=== PATIENT | female | born 1995 | race Hispanic/Latino ===

== ENCOUNTER 2021-08-07 21:10 | Emergency (ER) | payer SELFPAY ==
[~2021-08-07] VITALS: Ht 165.1 cm; Wt 88.0 kg
[2021-08-07 22:20] LABS: URINE BILIRUBIN - DIPSTICK NEGATIVE (NEGATIVE); URINE BLOOD DIPSTICK SMALL (NEGATIVE); URINE COLOR YELLOW; URINE GLUCOSE - DIPSTICK NEGATIVE (NEGATIVE); URINE KETONE NEGATIVE (NEGATIVE); URINE PROTEIN - DIPSTICK NEGATIVE (NEG-TRACE); URINE SPECIFIC GRAVITY 1.025; URINE UROBILINOGEN - DIPSTICK 0.2 E.U./dL (0.2)
[2021-08-07 22:22] LABS: HEMATOCRIT 38.3 % (37.0-47.0); HEMOGLOBIN 12.5 g/dl (12.0-16.0); IMMATURE GRANULOCYTES 0.4 % (0.0-5.0); MEAN CELL VOLUME 86.5 fL CALC (80.0-100.0); MEAN CORPUSCULAR HGB 28.2 pG CALC (26.0-32.0); MEAN CORPUSCULAR HGB CONC 32.6 g/dL CAL (32.0-36.0); NEUT# 1.67 thou/uL (2.00-7.15); RED BLOOD COUNT 4.43 mill/uL (4.20-5.60); RED CELL DISTRI WIDTH 13.6 % (11.5-15.5)
[2021-08-07 22:23] LABS: URINE LEUK ESTERASE MODERATE (NEGATIVE); URINE NITRITE - DIPSTICK NEGATIVE (Negative)
[2021-08-07 22:24] LABS: URINE SQUAMOUS EPITHELIAL CELL FEW EPI/hpf (0-FEW)
[2021-08-07 22:36] LABS: ALBUMIN 4.1 g/dL (3.2-5.0); ALKALINE PHOSPHATASE 75 u/l (38-126); AMYLASE 69 u/l (30-110); ANION GAP 13 (6-22 (CALC)); BILIRUBIN, TOTAL 0.2 mg/dL (0.0-1.4); BUN 11 mg/dL (7-17); BUN/CREATININE RATIO 18 (12-20 (CALC)); CARBON DIOXIDE 23 mmol/l (22-30); CHLORIDE 106 mmol/l (95-108); CREATININE 0.6 mg/dL (0.5-1.0); GFR > 60 ML/MIN (>=60 (CALC)); GFR FOR AFR.AMER. > 60 ML/MIN (>=60 (CALC)); LIPASE 167 u/l (23-300); POTASSIUM 3.9 mmol/l (3.5-5.1); SGOT/AST 135 u/l (14-36); SODIUM 138 mmol/l (137-146); TOTAL PROTEIN 7.3 g/dL (6.3-8.2)
[2021-08-08] MEDS ORDERED: KEFLEX500 MG PO ×2 (00:17→00:24)
[2021-08-08 00:20] VITALS: BP 101/63
== END 2021-08-08 00:20 | disposition home or self-care (01) | DRG 690 ==
LOC: EDBD 21:10 → ED 21:10
PROVIDERS: Emergency Medicine
DX: N39.0 Urinary tract infection, site not specified (principal); R74.8 Abnormal levels of other serum enzymes; F19.10 Other psychoactive substance abuse, uncomplicated
CPT/HCPCS: Q9967